=== PATIENT | female | born 1960 | race African-American/Black ===

== ENCOUNTER → 2016-09-07 | Outpatient (CLI) | payer OTHER | END | disposition home or self-care (01) | LOC: RAD.S 09:50 | DX: M25.561 Pain in right knee (principal); M25.461 Effusion, right knee ==

== ENCOUNTER 2016-11-05 19:20 | Emergency (ER) | payer OTHER ==
--- NOTE | 2016-12-09 15:38 | ER ---
ADMIT: 11/05/2016 RM/LOC: ER [facility] MR#: [id number] [facility] [id number] OSBALDO HUDSON [address] [facility] [address] [place] [id number] Emergency Room Report SEX: F AGE: 56 : 1960 DATE: 11/05/2016 SUBJECTIVE: A 56-year-old female, who comes to the Emergency Department with over 30 days worth of right knee pain. She says she has seen Orthopedics in the past and they did tap off a large effusion away to have it reoccur. See T- sheet for history and physical. There is an obvious effusion there again. She declines having a tap tonight, saying she would rather follow up with her orthopedist tomorrow. She is given a prescription for [place] and encouraged to follow up tomorrow with Orthopedics. DIAGNOSIS: Knee effusion. Ankush Felix MD/ jorge JOB #: [id number] CC: Onel Turcios MD, Attending Physician
== END 2016-11-05 20:20 | disposition home or self-care (01) ==
LOC: ER 19:20
DX: M25.461 Effusion, right knee (principal); F17.210 Nicotine dependence, cigarettes, uncomplicated; F41.9 Anxiety disorder, unspecified; Z79.899 Other long term (current) drug therapy

== ENCOUNTER → 2016-11-21 | Outpatient (CLI) | payer OTHER | END | disposition home or self-care (01) | LOC: RAD.S 13:48 | DX: M79.604 Pain in right leg (principal); M79.89 Other specified soft tissue disorders; M71.21 Synovial cyst of popliteal space [Baker], right knee ==